=== PATIENT | female | born 1955 | race Two or more races ===

== ENCOUNTER 2017-09-30 07:18 | Day surgery (SDC) | payer BC ==
[2017-09-30] VITALS (8 sets, daily range): BP systolic 101–109; BP diastolic 64–75
[~2017-09-30] VITALS: Ht 157.5 cm; Wt 57.6 kg
[2017-09-30] MEDS ORDERED: VITAMIN D1000 UNI1 ORAL (08:16)
[2017-09-30] MEDS ORDERED: CALCIUM600 M1 PO (08:16)
[2017-09-30] MEDS ORDERED: Propofol 200mg/20ml IV ONE (09:00)
[2017-09-30] MEDS ORDERED: Midazolam 2mg/2ml Inj ONE (09:00)
--- NOTE | 2017-09-30 09:02 | Pre-Procedure Note/Attestation ---
Pre-Procedure Note/Attestation Complete Prior to Procedure Planned Procedure: not applicable Procedure Narrative: colonoscopy Indications for Procedure Pre-Operative Diagnosis: screening Attestation I attest that I discussed the nature of the procedure; its benefits; risks and complications; and alternatives (and the risks and benefits of such alternatives ), prior to the procedure, with the patient (or the patient's legal junior sales representative). I attest that, if there was a reasonable possibility of needing a blood transfusion, the patient (or the patient's legal junior sales representative) was given the [facility] standardized written summary, pursuant to the [place] Blood Safety Act ([place] Health and Safety Code # 1645, as amended). I attest that I re-evaluated the patient just prior to the surgery and that there has been no change in the patient's H&P, except as documented below: LENY RIVERA Sep 30, 2017 09:02
--- NOTE | 2017-09-30 09:03 | Short Stay Surgery H&P ---
History of Present Illness History of Present Illness Chief Complaint screening colonoscopy HPI Socorro Stark is a 62 year old female who was admitted on for Colon Screening Patient History Allergies: Coded Allergies: No Known Allergies (Unverified , 09/29/17) PAST MEDICAL HISTORY: Past Surgeries: Social History: Medication History Scheduled Calcium Carbonate (Calcium), 600 MG PO DAILY, (Reported) Cholecalciferol (Vitamin D3)* (Vitamin D*), 2,000 UNITS ORAL DAILY, (Reported) Review of Systems Cardiovascular: Reports: no symptoms Respiratory: Reports: no symptoms Skeletal: Reports: no symptoms Gastrointestinal: Reports: no symptoms Genitourinary: Reports: no symptoms Neurologic: Reports: no symptoms Endocrine: Reports: no symptoms Hematologic: Reports: no symptoms Physical Exam Vital Signs Last Vital Signs Date Time Temp Pulse Resp B/P (MAP) Pulse Ox O2 Delivery O2 Flow Rate FiO2 09/30/17 08:17 97.1 66 16 105/67 100 Room Air Skin: normal HENT: normal Heart: normal Lungs: normal Abdomen: normal Extremities: normal Plan Plan of Care colonoscopy Final Diagnosis: Attestation Are the patient's medical conditions optimized for surgery? Attestation Response: yes LENY RIVERA Sep 30, 2017 09:03
--- NOTE | 2017-09-30 09:11 | Anethesia Preoperative Eval ---
Anesthesia Pre-op PMH/ROS General Date of Evaluation: Sep 30, 2017 Time of Evaluation: 08:50 Anesthesiologist: Joanna ASA Score: ASA 1 Mallampati Score Class I : Soft palate, uvula, fauces, pillars visible Class II: Soft palate, uvula, fauces visible Class III: Soft palate, base of uvula visible Class IV: Only hard plate visible Mallampati Classification: Class I Surgeon: Reena Diagnosis: Screening Surgical Procedure: Colonoscopy Anesthesia History: none Family History: no anesthesia problems Allergies: Coded Allergies: No Known Allergies (Unverified , 09/29/17) Medications: see eMAR Past Medical History Cardiovascular: Denies: HTN, CAD, [place], valve dz, arrhythmia, other Pulmonary: Denies: asthma, COPD, JESENIA, other Gastrointestinal/Genitourinary: Reports: other - bloating Neurologic/Psychiatric: Denies: dementia, CVA, depression/anxiety, TIA, other Endocrine: Denies: DM, hypothyroidism, steroids, other HEENT: Reports: other - sinusitis chronic, vertigo Musculoskeletal/Integumentary: Reports: other - back pain Anesthesia Pre-op Phys. Exam Physician Exam Last Vital Signs Date Time Temp Pulse Resp B/P (MAP) Pulse Ox O2 Delivery O2 Flow Rate FiO2 09/30/17 08:17 97.1 66 16 105/67 100 Room Air Constitutional: NAD Neurologic: CN 2-12 intact Cardiovascular: RRR Respiratory: CTA Gastrointestinal: S/NT/ND Airway Exam Mallampati Score: Class I MO: full ROM: full Teeth: intact Dentures: no upper, no lower Anesthesia Pre-op A/P Labs chart reviewed Studies Pre-op Studies: EKG - NSR 67 bpm Risk Assessment & Plan Assessment: pt A&Ox4 Plan: MAC Status Change Before Surgery: No Pre-Antibiotics Given Within 1 Hr of Incision: No Fany Marshall CRNA Sep 30, 2017 09:11
--- NOTE | 2017-09-30 09:13 | Immediate Post-Op Evaluation ---
Immediate Post-Op Evalulation Immediate Post-Op Evalulation Procedure: Colonoscopy Date of Evaluation: Sep 30, 2017 Time of Evaluation: 09:26 IV Fluids: NSS 250 ml Blood Products: 0 Estimated Blood Loss: 0 Urinary Output: 0 Blood Pressure Systolic: 102 Blood Pressure Diastolic: 64 Pulse Rate: 64 Respiratory Rate: 20 O2 Sat by Pulse Oximetry: 100 Temperature (Fahrenheit): 97.9 Pain Score (1-10): 0 Nausea: No Vomiting: No Complications none noted Patient Status: awake, reacts Hydration Status: adequate Given Within 1 Hr of Incision: No - none per surgeon Fany Marshall CRNA Sep 30, 2017 09:13
--- NOTE | 2017-09-30 09:14 | 48 Hour Post Anesthesia Eval ---
Post Anesthesia Evaluation Procedure: Colonoscopy Date of Evaluation: Sep 30, 2017 Time of Evaluation: 09:42 Blood Pressure Systolic: 104 0: 64 Pulse Rate: 66 Respiratory Rate: 20 Temperature (Fahrenheit): 97.9 O2 Sat by Pulse Oximetry: 100 Airway: patent Nausea: No Vomiting: No Pain Intensity: 0 Hydration Status: adequate Mental Status/LOC: patient returned to baseline Post-Anesthesia Complications: none noted Follow-up care needed: patient intructions given Fany Marshall CRNA Sep 30, 2017 09:14
--- NOTE | 2017-09-30 09:19 | Endoscopy Procedure Note ---
Endoscopy Procedure Note General Indication for Procedure: screening Procedures Performed: colonoscopy Operative Findings/Diagnosis: hemorrhoids Specimen: none Pt Tolerated Procedure Well: Yes Estimated Blood Loss: none Anesthesia Anesthesiologist: mary Anesthesia: MAC Inserted Devices Implant(s) used?: No Quality Quality of Bowel Preparation: Excellent Did scope reach the cecum?: Yes Was there any complications?: No GI Core Measures 50 yrs or older w/o bx or poly: Yes 10yrs. F/U not recommended: Yes If not recommended, why?: Above average risk 10 yrs. F/U needed: Yes 18 years or older w/prev. colo: Yes <3yrs. since last colonoscopy: No LENY RIVERA Sep 30, 2017 09:18
--- NOTE | 2017-09-30 15:00 | Procedure Note ---
DATE OF PROCEDURE: 09/30/2017 SURGEON: Augustus Valles M.D. PROCEDURE: Colonoscopy. ANESTHESIA: Per Joanna LEE. INSTRUMENT: Olympus adult flexible colonoscope. INDICATION: Screening colonoscopy. The procedure, risks, benefits, and possible consequences, including hemorrhage, aspiration, perforation and infection, and alternative treatments, were explained to the patient/legal guardian by Dr. Augustus Valles and the patient/legal guardian understood and accepted these risks. DESCRIPTION OF PROCEDURE: After informed consent was obtained and the patient was adequately sedated, first rectal exam performed, which was positive for internal hemorrhoids. Then, the scope was advanced from the rectum into the cecum documented by appendiceal orifice, ileocecal valve, and right upper quadrant palpation. Quality of prep was excellent. The patient had normal colonoscopic examination. No mass. No polyp. No diverticulosis. No other pathology was seen. Retroflexion of rectum showed evidence of few medium-sized nonbleeding internal hemorrhoids. The patient tolerated the procedure very well without any complication. SUMMARY OF FINDINGS: Internal hemorrhoids, otherwise, normal colonoscopy examination. RECOMMENDATIONS: Treat for hemorrhoids if become symptomatic. Augustus Valles M.D. DR: BRIGITTE JOB#: [id number] CC:
--- NOTE | 2017-10-01 10:43 | Cardiology Report ---
APPROVED REPORT EKG Measurement Heart [id number] Normal sinus rhythm Normal ECG
== END 2017-09-30 10:25 | disposition home or self-care (01) ==
LOC: GAS 07:18
DX: Z12.11 Encounter for screening for malignant neoplasm of colon (principal); K64.8 Other hemorrhoids
CPT/HCPCS: 45378; 93005; J2250; J2704; 94003; 94150